=== PATIENT | female | born 1995 | race Caucasian/White ===

== ENCOUNTER 2022-10-13 11:25 | Inpatient (IN) | payer BC, SELFPAY ==
[2022-10-13] VITALS (58 sets, daily range): BP systolic 118–168; BP diastolic 58–96; PULSE 82–124; RESP 16; TEMP 36.6–36.9; O2SAT 97–100; BMI 44.2
[2022-10-13 09:42] LABS: Hematocrit 32.5 % (33.0-51.0); Hemoglobin* 10.8 gm/dL (12.0-16.0); Mean Corpuscular HGB Conc 33 gm/dL (32-36); Mean Corpuscular Hemoglobin 27 pg (26-34); Mean Corpuscular Volume 82 fL (80-100); Platelet Count* 412 K/uL (140-440); Red Blood Count 3.98 m/uL (4.00-5.20)
[2022-10-13 09:45] LABS: Slide Review Reflex No
[2022-10-13 09:59] LABS: Aspartate Amino Transferase* 19 U/L (12-35); Creatinine* 0.6 mg/dL (0.5-1.5); Estimated Glomerular Filt Rate 125 ml/min
[2022-10-13 10:00] LABS: Alanine Aminotransferase* 17 U/L (4-35); Blood Urea Nitrogen* 5 mg/dL (5-24); INR 0.93 (0.91-1.10); Prothrombin Time 13.1 Seconds
[2022-10-13 10:00] LABS: Total Protein Urine 16 mg/dL
[2022-10-13 10:01] LABS: Creatinine Urine 87.6 mg/dL
[2022-10-13 10:01] LABS: Fibrinogen* 664 mg/dL (200-450)
[2022-10-13] MEDS: LACTATED RINGERS 1000 ML 1,000 ML 75 ML IV (11:58)
[2022-10-13] MEDS: ONDANSETRON 2 MG/ML inj 4 MG IV ×2 (12:04→22:04)
[2022-10-13] MEDS: miSOPROStoL 25 MCG/0.25 TABLET PO ×3 (12:10→17:34)
[2022-10-13] MEDS: LABETALOL HCL 5 MG/ML inj IVP ×2 (13:09→19:38)
[2022-10-13 13:16] LABS: SARS PCR* Negative SARS-CoV-2 (Negative)
[2022-10-13 16:15] LABS: Hematocrit 34.2 % (33.0-51.0); Hemoglobin* 11.2 gm/dL (12.0-16.0); Mean Corpuscular HGB Conc 33 gm/dL (32-36); Mean Corpuscular Hemoglobin 27 pg (26-34); Mean Corpuscular Volume 82 fL (80-100); Platelet Count* 456 K/uL (140-440); Red Blood Count 4.18 m/uL (4.00-5.20); White Blood Count* 16.67 K/uL (4.50-11.00)
[2022-10-13 16:32] LABS: Slide Review Reflex No
[2022-10-13 16:39] LABS: Alanine Aminotransferase* 16 U/L (4-35); Aspartate Amino Transferase* 19 U/L (12-35); Blood Urea Nitrogen* 4 mg/dL (5-24); Creatinine* 0.5 mg/dL (0.5-1.5); Est. Creatinine Clearance* 149.39; Estimated Glomerular Filt Rate 130 ml/min
[2022-10-13 16:46] LABS: Magnesium* 4.1 mg/dL (1.5-2.6)
--- NOTE | 2022-10-13 19:45 | PM.OBHPLI ---
OB - H&P: HPI Labor/Induction History of Present Illness Date Seen: 10/13/22 Chief Complaint: The patient is a 27 year old 2 para 1 at 36+5 weeks gestation by LMP and confirmed with 7 week US, who presents with elevated BP readings up to 170s systolic at home. She has had readings up to 160s systolic here in the hospital as well, so she was admitted for IOL for preeclampsia with severe features. Chief complaint: Maternity : 2 Para: 1 Indications for induction: pre-eclampsia Narrative: Trang Puentes is a 27 year old female here for IOL for preeclampsia with severe features. She has a history of preexisting HTN, well controlled without medications throughout until 10/12/2022 when she was noted to have high readings at home. She was seen at [facility] yesterday with one BP reading of 160s systolic. Was given a dose of betamethasone and d/c home to follow up in clinic today. However because of home readings up to 179/103, she presented to L&D where she had another BP reading into the 160s. She report no headache, no vision changes, no swelling, no RUQ pain. Her preeclampsia labs were negative, however because of continued elevated readings, a phone consult with perinatology was placed and IOL and IV magnesium were recommend for preeclampsia with severe features. Patient has now had 3 doses of cytotec and cervix is more favorable. She is have occasional contractions, but minimal discomfort. Cook catheter placed with 50 mL in both intrauterine and intravaginal balloons. History of Present Dating criteria: based on LMP care: good care Ultrasounds: normal 1st trimester US and other (Normal 2nd trimester, normal 34 week growth us) complications: preeclampsia Narrative: hypothyroid, adequately recplaced. Labs Blood type: O (+) positive Rubella: immune RPR/VDLR: nonreactive GBS status: negative HBsAG: negative Review of Systems Status of ROS: Reports: 10 or more systems reviewed and unremarkable except as noted in History and below Meds Home Medications and Allergies Home Medications Medication Instructions Recorded Confirmed Type aspirin 81 mg capsule 81 mg PO DAILY 10/13/22 10/13/22 History docosahexaenoic acid 1 cap PO DAILY 10/13/22 10/13/22 History fluoxetine 40 mg capsule 40 mg PO DAILY 10/13/22 10/13/22 History levothyroxine 100 mcg tablet 100 mcg PO DAILY 10/13/22 10/13/22 History Allergies Allergy/AdvReac Type Severity Reaction Status Date / Time sulfamethoxazole Allergy Mild Rash Verified 10/13/22 09:07 [From Bactrim] trimethoprim [From Bactrim] Allergy Mild Rash Verified 10/13/22 09:07 OB - H&P: Exam Physical Exam: Vital signs: Temp Pulse Resp BP Pulse Ox 97.9 F 86 16 164/77 H 100 10/13/22 17:32 10/13/22 19:30 10/13/22 17:32 10/13/22 19:30 10/13/22 19:20 Constitutional: Constitutional: no acute distress Routine HEENT Exam: Head: Present atraumatic and normal inspection Eye: Present EOMI and PERRL ENT: Present mucous membranes moist Routine Neck Exam: Neck: Present full ROM Routine Respiratory Exam: Respiratory: Present CTA bilaterally Routine Cardiovascular Exam: Cardiovascular: RRR Detailed Labor and Delivery Exam: Patient Gravid: Yes Dilation (cm): 1 Effacement (%): 70 Cervix position: posterior Consistency: soft Fetus (Single): Station: -3 Routine Extremities Exam: Comments: no swelling Routine Skin Exam: Present intact Routine Neurological Exam: Present alert, oriented X3 and CN II-XII intact Comments: hyperreflexive with clonus at patella OB - Results Labs Labs: Short CBC 10/13/22 10/13/22 Range/Units 09:33 16:10 WBC 13.90 H 16.67 H (4.50-11.00) K/uL Hgb 10.8 L 11.2 L (12.0-16.0) gm/dL Hct 32.5 L 34.2 (33.0-51.0) % Plt Count 412 456 H (140-440) K/uL BMP 10/13/22 10/13/22 09:33 16:10 BUN 5 4 L Creatinine 0.6 0.5 Liver Function 10/13/22 10/13/22 Range/Units 09:33 16:10 AST 19 19 (12-35) U/L ALT 17 16 (4-35) U/L OB - Problem Based A/P Additional Plan (1) Preeclampsia, severe: Status: Acute (2) : Status: Acute (3) Hypothyroid: Status: Acute Plan 1. Cook catheter placed, start pitocin at midnight. 2. Continue magnesium, BP management and Q6 hour labs 3. Epidural per patient request 4. plan for AROM and continued pitocin in the AM. Anticipate 5. Audio Visual Aids Director consulted. Delivery/Labor/Induction Plan Plan: induction Induction method: per pitocin protocol
[2022-10-13] MEDS: BETAMETHASONE SOD PHOS/ACETATE 6 MG/ML ML 12 MG IM (21:37)
[2022-10-13 21:42] LABS: Hematocrit 32.4 % (33.0-51.0); Hemoglobin* 10.7 gm/dL (12.0-16.0); Mean Corpuscular HGB Conc 33 gm/dL (32-36); Mean Corpuscular Hemoglobin 27 pg (26-34); Mean Corpuscular Volume 82 fL (80-100); Platelet Count* 407 K/uL (140-440); Red Blood Count 3.96 m/uL (4.00-5.20); White Blood Count* 15.67 K/uL (4.50-11.00)
[2022-10-13 21:44] LABS: Slide Review Reflex No
[2022-10-13] MEDS: MORPHINE 10 MG/ML inj IM (21:45)
[2022-10-13] MEDS: hydrOXYzine pamoate 25 MG CAPSULE 100 MG PO (21:45)
[2022-10-13 22:08] LABS: Alanine Aminotransferase* 16 U/L (4-35); Aspartate Amino Transferase* 19 U/L (12-35); Blood Urea Nitrogen* 4 mg/dL (5-24); Creatinine* 0.5 mg/dL (0.5-1.5); Est. Creatinine Clearance* 149.39; Estimated Glomerular Filt Rate 130 ml/min
[2022-10-13 22:21] LABS: Magnesium* 4.6 mg/dL (1.5-2.6)
[2022-10-14] VITALS (85 sets, daily range): BP systolic 114–177; BP diastolic 59–95; PULSE 74–119; RESP 16–18; TEMP 36.5–37.2; O2SAT 97–99
[2022-10-14] MEDS: LACTATED RINGERS 1000 ML 1,000 ML 75 ML IV ×3 (00:23→22:35)
[2022-10-14] MEDS: OXYTOCIN 30 unit/500 ML in NS 30 UNIT/500 ML BAG IVPB (00:36)
--- NOTE | 2022-10-14 07:29 | P.OBPN_ITS ---
Subjective Date Seen: 10/14/22 Narrative: Trang is a at 36+6 undergoing IOL for preeclampsia with severe features. Labs have remained normal overnight. Was able to sleep some overnight. No doses of labetalol since 1930 last night. Patient reports feeling some contractions, but pretty irregular. Underwent AROM with small amount of clear fluid. Objective Vital Signs: Last Vital Signs Temp 98.1 F 10/13/22 23:34 Pulse 89 10/14/22 06:34 Resp 16 10/13/22 17:32 BP 126/72 10/14/22 06:34 Pulse Ox 100 10/13/22 19:20 Pelvic Exam Dilation (cm): 4.5 Effacement (%): 70 Station: -2 Contractions Monitor mode: External Contraction pattern: Irregular Contraction intensity: Mild Assessment Station: -3 Amniotic Membrane Status: AROM Status: Category l Heart Rate Baseline: 125 Magazine Grinder Loader Variability: Moderate (6-25) Monitor Accelerations: Present Monitor Decelerations: None Plan Plan: IOL for preeclampsia with severe features. Cook catheter removed and AROM completed. Continue pitocin. Epidural per patient request. Anticipate .
[2022-10-14 09:50] LABS: Hematocrit 31.5 % (33.0-51.0); Hemoglobin* 10.4 gm/dL (12.0-16.0); Mean Corpuscular HGB Conc 33 gm/dL (32-36); Mean Corpuscular Hemoglobin 27 pg (26-34); Mean Corpuscular Volume 82 fL (80-100); Platelet Count* 425 K/uL (140-440); Red Blood Count 3.83 m/uL (4.00-5.20); White Blood Count* 13.74 K/uL (4.50-11.00)
[2022-10-14 09:53] LABS: Slide Review Reflex No
[2022-10-14 10:04] LABS: Creatinine* 0.5 mg/dL (0.5-1.5); Est. Creatinine Clearance* 149.39; Estimated Glomerular Filt Rate 130 ml/min
[2022-10-14 10:05] LABS: Alanine Aminotransferase* 17 U/L (4-35); Aspartate Amino Transferase* 20 U/L (12-35); Blood Urea Nitrogen* 4 mg/dL (5-24)
[2022-10-14 10:19] LABS: Magnesium* 5.1 mg/dL (1.5-2.6)
[2022-10-14] MEDS: fentaNYL 250 MCG/5 ML inj 100 MCG EPIDURAL (11:55)
[2022-10-14] MEDS: ROPIVACAINE 0.2% 100 ml 100 ML 12 MG EPIDURAL (12:01)
[2022-10-14] MEDS: LIDOCAINE 2% (PF) 5 ML VIAL EPIDURAL (12:01)
--- NOTE | 2022-10-14 12:10 | P.ANBPRC_ITS ---
[facility] Medical History (Updated 10/13/22 @ 20:01 by Gege Ramon MD) Hypothyroid Preeclampsia, severe Social History Smoking Status: Never smoker Meds Home Medications and Allergies Home Medications Medication Instructions Recorded Confirmed Type aspirin 81 mg capsule 81 mg PO DAILY 10/13/22 10/13/22 History docosahexaenoic acid 1 cap PO DAILY 10/13/22 10/13/22 History fluoxetine 40 mg capsule 40 mg PO DAILY 10/13/22 10/13/22 History levothyroxine 100 mcg tablet 100 mcg PO DAILY 10/13/22 10/13/22 History Allergies Allergy/AdvReac Type Severity Reaction Status Date / Time sulfamethoxazole Allergy Mild Rash Verified 10/13/22 09:07 [From Bactrim] trimethoprim [From Bactrim] Allergy Mild Rash Verified 10/13/22 09:07 Results Labs Labs: Laboratory Results - last 24 hr 10/13/22 10/13/22 10/13/22 12:15 16:10 16:10 WBC 16.67 H RBC 4.18 Hgb 11.2 L Hct 34.2 MCV 82 MCH 27 MCHC 33 Plt Count 456 H BUN 4 L Creatinine 0.5 Estimated Creat Clear 149.39 Estimated GFR 130 Magnesium 4.1 H* AST 19 ALT 16 SARS-CoV-2 (PCR) Negative SARS-CoV-2 Blood Type Antibody Screen 10/13/22 10/13/22 10/13/22 16:30 21:32 21:32 WBC 15.67 H RBC 3.96 L Hgb 10.7 L Hct 32.4 L MCV 82 MCH 27 MCHC 33 Plt Count 407 BUN 4 L Creatinine 0.5 Estimated Creat Clear 149.39 Estimated GFR 130 Magnesium 4.6 H* AST 19 ALT 16 SARS-CoV-2 (PCR) Blood Type O Positive Antibody Screen NEGATIVE 10/14/22 10/14/22 09:31 09:31 WBC 13.74 H RBC 3.83 L Hgb 10.4 L Hct 31.5 L MCV 82 MCH 27 MCHC 33 Plt Count 425 BUN 4 L Creatinine 0.5 Estimated Creat Clear 149.39 Estimated GFR 130 Magnesium 5.1 H* AST 20 ALT 17 SARS-CoV-2 (PCR) Blood Type Antibody Screen Vital Signs Vital Signs: Last Vital Signs Temp 98.2 F 10/14/22 10:07 Pulse 100 10/14/22 12:10 Resp 16 10/14/22 10:07 BP 142/74 H 10/14/22 12:10 Pulse Ox 98 10/14/22 12:04 Weight: 120.565 kg Height: 165.1 cm Anesthesia Procedures Epidural Insertion Patient Location: OB Start Time: 11:15 Stop Time: 12:15 Start Date: 10/14/22 Stop Date: 10/14/22 Reason for Block: primary anesthetic Patient Position: sitting Performed By: Huber Panchal Preanesthetic Checklist: IV checked, risks and benefits discussed, surgical consent, monitors and equipment checked, pre-op evaluation, timeout performed and anesthesia consent Prep: chlorhexidine gluconate Monitoring: blood pressure monitoring, cardiac rehabilitation specialist, continuous pulse oximetry and heart rate Approach: midline Vertebral Space: lumbar (1-5) Needle Type: Tuohy needle Injection Technique: continuous catheter Needle gauge: 17 Needle Length (cm): 10 cm Needle Insertion Depth (cm): 6 Catheter Gauge: 19 Catheter Type: multi-orifice Catheter at skin depth (cm): 12 Test Dose Result: negative and lidocaine 1.5% with epinephrine 1 to 200,000 Events: other
--- NOTE | 2022-10-14 15:30 | P.OBPN_ITS ---
Subjective Date Seen: 10/14/22 Narrative: Trang continues to do well. Became more uncomfortable around 1030 and requested an epidural. Is now feeling comfortable, some pelvic pressure. BPs have remained below treatment level. Magnesium drip continues. Objective Vital Signs: Last Vital Signs Temp 98.2 F 10/14/22 14:55 Pulse 77 10/14/22 15:21 Resp 16 10/14/22 14:55 BP 131/77 10/14/22 15:21 Pulse Ox 98 10/14/22 12:04 Pelvic Exam Dilation (cm): 8 Effacement (%): 80 Station: -2 Contractions Monitor mode: External Contraction pattern: Regular Contraction intensity: Strong/Firm Assessment Assessment: induction ongoing Station: -2 Amniotic Membrane Status: AROM Status: Category l Heart Rate Baseline: 125 Card Punching Machine Operator Variability: Moderate (6-25) Monitor Accelerations: Absent Monitor Decelerations: Variable Plan Plan: Continue pitocin induction Continue magnesium and lab monitoring. BP treatment per protocol. Anticipate
[2022-10-14 16:17] LABS: Hematocrit 31.1 % (33.0-51.0); Hemoglobin* 10.1 gm/dL (12.0-16.0); Mean Corpuscular HGB Conc 33 gm/dL (32-36); Mean Corpuscular Hemoglobin 27 pg (26-34); Mean Corpuscular Volume 83 fL (80-100); Platelet Count* 402 K/uL (140-440); Red Blood Count 3.73 m/uL (4.00-5.20); White Blood Count* 16.16 K/uL (4.50-11.00)
[2022-10-14 16:18] LABS: Slide Review Reflex No
[2022-10-14 16:36] LABS: Alanine Aminotransferase* 14 U/L (4-35); Aspartate Amino Transferase* 19 U/L (12-35); Blood Urea Nitrogen* 6 mg/dL (5-24); Creatinine* 0.6 mg/dL (0.5-1.5); Est. Creatinine Clearance* 124.49; Estimated Glomerular Filt Rate 125 ml/min
[2022-10-14 16:41] LABS: Magnesium* 5.1 mg/dL (1.5-2.6)
[2022-10-14] MEDS: miSOPROStoL 800 MCG/4 TABLET PR (18:10)
[2022-10-14] MEDS: TRANEXAMIC ACID 100 MG/ML INJ 1000 MG IV (18:11)
[2022-10-14] MEDS: CARBOPROST TROMETHAMINE 250 MCG/ML INJ IM (18:14)
[2022-10-14] MEDS: LOPERAMIDE HCL 2 MG CAPSULE 4 MG PO (18:14)
[2022-10-14] MEDS: ACETAMINOPHEN 500 MG TABLET 1000 MG PO (18:29)
--- NOTE | 2022-10-14 18:37 | PM.OBPRCVD ---
Procedure Delivery date: 10/14/22 Procedure Done: Global Events: Labor < 37 Weeks and Pre-Eclampsia Intrapartal Events: Excessive Bleeding Induction method: Intracervical balloon catheter Delivery augmentation: rupture of membranes and pitocin Delivery monitor: external FHT Route of delivery: Episiotomy description: None Laceration description: None Anesthesia type: Epidural Narrative: The patient is a 27 year-old admitted on 10/13/2022 at 36 Weeks, 5 Days gestation for IOL for severe preeclampsia.? Cervical exam on admission was 1 cm/0 % effaced/-3 station with membranes intact in vertex presentation.? Contractions were absent.? heart rate demonstrated baseline 130 bpm with moderate variability, + accelerations, - decelerations; a category 1 tracing. She was given 3 doses of cytotec prior to placement of cook catheter at 1940. At removal of cook catheter at 0720, ? AROM occurred at 0723 with clear fluid. Pitocin was continued throughout the day on 10/14/2022 ? Labor Analgesia:? epidural ? Pitocin:? yes ? Labor onset:? 1120 ? Complete:? 1749 ? Pushing:? 1756 ? heart tones during second stage were category 1. ? At 1808 a viable female infant delivered in vertex OA presentation over intact perineum via spontaneous vaginal delivery.? Infant was placed on maternal abdomen.? Cord was clamped and cut after a 30-60 second delay.? Nose and mouth were bulb suctioned.? weight pending.? 8 at 1 minute and 9 at 5 minutes.? Shoulder dystocia: no.? Nuchal cord: no. ? Placenta delivered spontaneously and complete at 1810 with a 3 vessel cord. At that time, IV pitocin was turned up to 300 ml/hour. Uterus was boggy and rectal cytotec followed by IV TXA and IM hemabate provided. Uterus was then palpated firm ? Mother and were stable after delivery. ? Lacerations:? none. ? Blood loss: 857 mL. Blood loss measurement type: QBL ? Sponge and needles counts are correct. [place] Gender: Female presentation: vertex Placental Delivery Description: Spontaneous Cord Description: 3 Vessels
[2022-10-15] VITALS (9 sets, daily range): BP systolic 121–163; BP diastolic 66–85; PULSE 78–93; RESP 16; TEMP 36.5–37; O2SAT 96–99
[2022-10-15] MEDS: IBUPROFEN 600 MG TABLET PO (03:49)
[2022-10-15 06:12] LABS: Hematocrit 27.3 % (33.0-51.0); Hemoglobin* 8.9 gm/dL (12.0-16.0); Mean Corpuscular HGB Conc 33 gm/dL (32-36); Mean Corpuscular Hemoglobin 27 pg (26-34); Mean Corpuscular Volume 84 fL (80-100); Platelet Count* 380 K/uL (140-440); Red Blood Count 3.26 m/uL (4.00-5.20); White Blood Count* 14.38 K/uL (4.50-11.00)
[2022-10-15 06:15] LABS: Slide Review Reflex No
[2022-10-15 06:28] LABS: Alanine Aminotransferase* 17 U/L (4-35); Aspartate Amino Transferase* 21 U/L (12-35); Creatinine* 0.6 mg/dL (0.5-1.5); Est. Creatinine Clearance* 124.49; Estimated Glomerular Filt Rate 125 ml/min
[2022-10-15] MEDS: FERROUS SULFATE 325 MG TABLET PO (09:01)
[2022-10-15] MEDS: ACETAMINOPHEN 500 MG TABLET 1000 MG PO (09:01)
[2022-10-15] MEDS: LEVOTHYROXINE 100 MCG TABLET PO (09:02)
[2022-10-15] MEDS: FLUOXETINE HCL 20 MG CAPSULE 40 MG PO (09:02)
[2022-10-15] MEDS: LABETALOL HCL 100 MG TABLET PO ×2 (11:14→21:12)
[2022-10-15] MEDS: LACTATED RINGERS 1000 ML 1,000 ML 75 ML IV (11:57)
--- NOTE | 2022-10-15 13:46 | P.OBPN_ITS ---
OB - PN:Subj Subjective Date Seen: 10/15/22 Patient comments OB post-: no complaints [place] status: feeding status: exclusively OB - PN: Obj Exam Physical Exam: Vital signs: Temp Pulse Resp BP Pulse Ox O2 Del Method 97.7 F 81 16 131/81 96 10/15/22 12:10 10/15/22 12:10 10/15/22 12:10 10/15/22 12:10 10/15/22 12:10 10/15/22 12:10 Constitutional: Constitutional: no acute distress Routine Abdominal Exam: Comments: Soft and non tender, uterus firm 1 cm below umbilicus. OB - PN: Obj Data Labs Labs: Laboratory Results - last 24 hr 10/14/22 10/14/22 10/15/22 15:54 15:54 06:05 WBC 16.16 H 14.38 H RBC 3.73 L 3.26 L Hgb 10.1 L 8.9 L Hct 31.1 L 27.3 L MCV 83 84 MCH 27 27 MCHC 33 33 Plt Count 402 380 BUN 6 Creatinine 0.6 Estimated Creat Clear 124.49 Estimated GFR 125 Magnesium 5.1 H* AST 19 ALT 14 10/15/22 06:05 WBC RBC Hgb Hct MCV MCH MCHC Plt Count BUN Creatinine 0.6 Estimated Creat Clear 124.49 Estimated GFR 125 Magnesium AST 21 ALT 17 OB - PN: A/P Vaginal Delivery Assessment and Plan (1) Preeclampsia, severe: Status: Acute Assessment and Plan: Continue magnesium to 24 hours. Labetalolol started for BP management. (2) : Status: Inactive (3) Hypothyroid: Status: Acute Plan Plan: routine care Comments: likely d/c in AM if BP remains well controlled.
[2022-10-15] MEDS: LANOLIN CREAM 1 APPLIC TOPICAL (21:31)
[2022-10-16] VITALS (8 sets, daily range): BP systolic 124–149; BP diastolic 71–79; PULSE 66–82; RESP 16–18; TEMP 36.7–37.1; O2SAT 95–96
[2022-10-16] MEDS: IBUPROFEN 600 MG TABLET PO ×2 (04:07→16:25)
[2022-10-16 06:20] LABS: Hematocrit 23.8 % (33.0-51.0); Mean Corpuscular HGB Conc 32 gm/dL (32-36); Mean Corpuscular Hemoglobin 27 pg (26-34); Mean Corpuscular Volume 85 fL (80-100); Platelet Count* 342 K/uL (140-440); Red Blood Count 2.81 m/uL (4.00-5.20); White Blood Count* 10.01 K/uL (4.50-11.00)
[2022-10-16 06:26] LABS: Hemoglobin* 7.6 gm/dL (12.0-16.0); Slide Review Reflex No
[2022-10-16 06:35] LABS: Aspartate Amino Transferase* 21 U/L (12-35); Creatinine* 0.6 mg/dL (0.5-1.5); Est. Creatinine Clearance* 124.49; Estimated Glomerular Filt Rate 125 ml/min
[2022-10-16 06:36] LABS: Alanine Aminotransferase* 15 U/L (4-35); Blood Urea Nitrogen* 12 mg/dL (5-24)
--- NOTE | 2022-10-16 07:16 | PM.OBPNVD1 ---
OB - PN:Subj Subjective Time Seen by Provider: 07:16 Date Seen: 10/16/22 Patient comments OB post-: no complaints status: feeding status: exclusively Narrative: Pt doing well. No concerns today. No headache. No abdominal pain. Lochia mild. Ambulating without lightheadedness. . OB - PN: Obj Exam Physical Exam: Vital signs: Temp Pulse Resp BP Pulse Ox O2 Del Method 98.6 F 68 16 146/75 H 96 10/16/22 04:04 10/16/22 04:04 10/16/22 04:04 10/16/22 04:04 10/16/22 04:04 10/16/22 04:04 Constitutional: Constitutional: no acute distress and cooperative Routine HEENT Exam: Head: Present normal inspection Routine Abdominal Exam: Fundus: Present firm Routine Extremities Exam: Extremities: Absent pedal edema Routine Psychiatric Exam: Psychiatric: Present normal affect, normal thought process, cooperative, good insight and good judgment OB - PN: Obj Data Labs Labs: Laboratory Results - last 24 hr 10/16/22 10/16/22 05:44 05:44 WBC 10.01 RBC 2.81 L Hgb 7.6 L* Hct 23.8 L MCV 85 MCH 27 MCHC 32 Plt Count 342 BUN 12 Creatinine 0.6 Estimated Creat Clear 124.49 Estimated GFR 125 AST 21 ALT 15 OB - PN: A/P Vaginal Delivery Assessment and Plan (1) Preeclampsia, severe: Status: Acute Assessment and Plan: BP's variable but sill with some in 140's so labetalol increased to 200mg bid this morning's dose. Continue with daily preeclamptic labs. Discussed discharge goal from preeclamptic standpoint needs to be > 24hours off magnesium AND bp's < 130/80. (2) : Status: Inactive (3) Hypothyroid: Status: Acute (4) hemorrhage: Status: Acute Assessment and Plan: Hgb 7.6 this morning. Lochia mild since initial PPH immediately after delivery. Pt tolerating anemia well, asymptomatic. On iron. Recheck hgb tomorrow morning. Plan Comments: see above. Discharge planning: will be 24hours off magnesium around 6pm tonight. Need improvement in BP's with increased labetolol dosing with first increased dose this morning. Infant failed carseat challenge and per protocol plan recheck 24 hours later which will be 4am tomorrow. Earliest discharge possibility would be Wednesday but depends on bp's. Discussed all these factors with pt and .
[2022-10-16] MEDS: LABETALOL HCL 100 MG TABLET 200 MG PO ×3 (08:30→23:38)
[2022-10-16] MEDS: DOCUSATE SODIUM 100 MG CAPSULE PO (08:30)
[2022-10-16] MEDS: FERROUS SULFATE 325 MG TABLET PO (08:30)
[2022-10-16] MEDS: FLUOXETINE HCL 20 MG CAPSULE 40 MG PO (08:30)
[2022-10-16] MEDS: LEVOTHYROXINE 100 MCG TABLET PO (08:31)
[2022-10-16] MEDS: ACETAMINOPHEN 500 MG TABLET 1000 MG PO (23:38)
[2022-10-17 05:59] VITALS: BP 154/82; PULSE 67
[2022-10-17] MEDS: LABETALOL HCL 100 MG TABLET 200 MG PO (06:03)
[2022-10-17] MEDS: LEVOTHYROXINE 100 MCG TABLET PO (06:03)
[2022-10-17 07:35] LABS: Platelet Count* 328 K/uL (140-440)
[2022-10-17 07:44] LABS: Hemoglobin* 7.9 gm/dL (12.0-16.0)
[2022-10-17 07:54] LABS: Alanine Aminotransferase* 18 U/L (4-35); Aspartate Amino Transferase* 21 U/L (12-35); Creatinine* 0.6 mg/dL (0.5-1.5); Est. Creatinine Clearance* 124.49; Estimated Glomerular Filt Rate 125 ml/min
[2022-10-17 09:00] VITALS: BP 150/86; PULSE 78; RESP 18; TEMP 37.2; O2SAT 98
[2022-10-17] MEDS: DOCUSATE SODIUM 100 MG CAPSULE PO (09:16)
[2022-10-17] MEDS: FERROUS SULFATE 325 MG TABLET PO (09:16)
[2022-10-17] MEDS: FLUOXETINE HCL 20 MG CAPSULE 40 MG PO (09:16)
[2022-10-17] MEDS: IBUPROFEN 600 MG TABLET PO (09:16)
[2022-10-17] MEDS: HYDRALAZINE 10 MG TABLET PO ×2 (11:20→17:08)
[2022-10-17 13:01] VITALS: BP 151/78; PULSE 90; RESP 18
[2022-10-17] MEDS: LABETALOL HCL 100 MG TABLET 300 MG PO (13:59)
[2022-10-17 14:15] VITALS: BP 147/83; PULSE 80; RESP 16
[2022-10-17 16:15] VITALS: BP 158/87; PULSE 78; RESP 18; TEMP 37; O2SAT 96
[2022-10-17 16:30] VITALS: BP 144/83; PULSE 84
--- NOTE | 2022-10-17 18:58 | P.DS_ITS ---
DS: Providers Provider Date Seen: 10/17/22 Date of admission: 10/13/22 11:25 Primary care physician: Portia Cortés MD Admitting Clinician: Gege Ramon MD Attending Physician on discharge: Portia Cortés MD Exam Const: Vital Signs, click to edit/add: Vital Signs - 24 hr 10/16/22 21:27 10/16/22 23:33 10/17/22 05:59 Temperature 98.5 F Pulse Rate [Pulse Oximeter] 67 67 Respiratory Rate 18 Blood Pressure [Ri ght Arm] 133/72 130/71 154/82 H Pulse Oximetry Oxygen Delivery Me thod 10/17/22 09:00 10/17/22 13:01 10/17/22 14:15 Temperature 99 F Pulse Rate [Pulse Oximeter] 78 90 80 Respiratory Rate 18 18 16 Blood Pressure [Ri ght Arm] 150/86 H 151/78 H 147/83 H Pulse Oximetry 98 Oxygen Delivery Me thod Room Air 10/17/22 16:30 10/17/22 16:15 Temperature 98.6 F Pulse Rate [Pulse Oximeter] 84 78 Respiratory Rate 18 Blood Pressure [Ri ght Arm] 144/83 H 158/87 H Pulse Oximetry 96 Oxygen Delivery Me thod Room Air Common normals: no apparent distress HENMT: Mouth: oral and palatal mucosa normal Resp: Common normals: normal respiratory effort and clear to auscultation bilaterally Auscultation: clear to auscultation bilaterally Cardio: Common normals: regular rate, regular rhythm and no murmurs Rate: regular rate Rhythm: regular rhythm GI: Common normals: non-tender Extremity: Common normals: no calf tenderness; pedal edema (1+ edema in bilateral lower extremities) OB - DS: Summary Hospital Course Hospital Course: The patient is a 27 year old G 2 P 1 at 36 weeks 5 days gestation that was admitted to the Center on 10/13/22 for IOL. She had severe preeclampsia and was on magnesium. She had a vaginal delivery. She delivered a viable female . She is breast feeding. Blood pressures have been difficult to control after delivery. She was started on po labetalol and hydralazine was added on 10/17. the patient has done well. Peripartum Data Infant delivery method: Vaginal Infant Gender: Female Time Spent with Patient Time attestation: Total time spent providing and/or coordinating discharge services: Time spent: Greater than 30 minutes Discharge Plan Discharge Disposition: Home, Self-Care Date of Admission: 10/13/22 11:25 Primary Care Provider: Portia Cortés Condition: Stable Anticipated Discharge Date/Time: 10/17/22 09:47 Discharge Medications: New hydralazine 10 mg Tablet 10 mg PO Q6H Qty: 60 0RF levothyroxine 100 mcg Tablet 100 mcg PO DAILY@0700 Qty: 30 0RF labetalol 100 mg Tablet 300 mg PO TID Qty: 60 0RF Continued fluoxetine 40 mg capsule 40 mg PO DAILY Label Comments: TAKE ONE CAPSULE BY MOUTH EVERY DAY IN THE MORNING. levothyroxine 100 mcg tablet 100 mcg PO DAILY Label Comments: TAKE ONE TABLET BY MOUTH ONE TIME DAILY BEFORE BREAKFAST docosahexaenoic acid [ DHA] 1 cap PO DAILY aspirin 81 mg capsule 81 mg PO DAILY Discharge Orders: Discharge Order (Routine); Ordered 10/17/22 Ordered By: Cuate Mcqueen Patient Education: OB High Blood Pressure DC, OB Over the Counter Medication Information, OB Vaginal/Breast Feeding Activity Level: Activity as Tolerated Follow Up Appointments: Portia Cortés MD [Primary Care Provider] - Forms: [employer] Info Instructions Discharge Comments: Discharge home on Labetalol 300 mg tid and Hydralazine 10 mg qid for hypertension. Goal BP < 140/90. Will monitor closely at home and increase medication as needed based on response. Discussed risk of discharge with higher blood pressures and patient understands risks. Monitor closely.
== END 2022-10-17 19:50 | disposition home or self-care (01) | DRG 560 ==
LOC: OB OUT 10-20 07:32 → OB 10-20 07:32
PROVIDERS: Family Medicine; Admitting Provider Family Medicine; PCP Family Medicine; Visit Provider Family Medicine
DX: O14.14 Severe pre-eclampsia complicating childbirth (principal); O99.284 Endocrine, nutritional and metabolic diseases complicating childbirth; E03.9 Hypothyroidism, unspecified; O72.1 Other immediate postpartum hemorrhage; O90.81 Anemia of the puerperium; D62 Acute posthemorrhagic anemia; Z37.0 Single live birth; Z3A.36 36 weeks gestation of pregnancy
CPT/HCPCS: 01967; 36415; 59200; 82565; 82570; 83735; 84156; 84450; 84460; 84520; 85018; 85027; 85049; 85384; 85610; 86850; 86900; 86901; 87635; 88307; 99213; A9270; J0702; J2270; J2405; J2795; J3010; J3475; J7120

== ENCOUNTER 2022-11-30 08:32 | Outpatient (CLI) | payer BC, SELFPAY ==
--- NOTE | 2022-12-25 16:34 | P.LACCB_ITS ---
Consult Note - Mom Date of Visit Date of visit: 11/30/22 pharmacy consultant: Mandy Loredo Visit Code: Visit Patient's Information Phone number: [phone] : 2 Para: 2 Allergies sulfamethoxazole [From Bactrim] Allergy (Mild, Verified 10/13/22 09:07) Rash trimethoprim [From Bactrim] Allergy (Mild, Verified 10/13/22 09:07) Rash Mother's Medical History: Medical History (Updated 10/16/22 @ 07:35 by Naomi Rivas, DO) Hypothyroid ?E03.9 - Hypothyroidism, unspecified (ICD-10) Preeclampsia, severe ?O14.10 - Severe pre-eclampsia, unspecified trimester (ICD-10) Depression Delivery Information Delivery type: Vaginal Weeks Gestation: 36.6 Gestational Age: AGA Weight: 2.863 kg Discharge Weight: 2.808 kg Baby's Information Baby's Age at Visit: 7 weeks Baby's Provider or Clinic: Dr. Ramon Reason for Consult Reason for Consult: difficulty latching, mom with damaged nipples Past Experience Past Experience: No Current Frequency of Day Feedings: every 2 - 3 hours Frequency of Night Feedings: every 4 - 6 hours Both Breasts: No Suck: somewhat aggressive Latch: shallow Length of Time: 10 - 20 minutes Goals: wants to be successful with this baby Pumping Pumping: Yes (will pump from the side baby doesn't nurse) Quantity Pumped: 3 - 6 oz total Supplementing EMB Supplement: Yes (occasionally) Formula Supplement: No Baby Elimination Number of Wet Diapers a Day: almost every feeding Number of BM a Day: usually daily; no BM since 11/28 Breast/Nipple Condition Maternal Nipple Condition - Left: Common Nipple Maternal Nipple Condition - Right: Common Nipple Onsite Pre-Feed weight: 3.828 kg Post-Feed weight: 3.876 kg Milk Transferred (mL): 48 Assessments/Interventions Assessments/Interventions: Met with mom and this now 7 week old ex- late AGA baby for consult.? Mom reports nursing was going well for the first 4 - 5 weeks but baby has now developed some issues with latch and mom has had damaged, blistered nipples.? Mom reports at about a month baby started refusing the left side so mom just nursed on the right and pumped the left.? She developed a few milk blisters on the right side however, so tried baby on the left again and now baby prefers to nurse from the left so mom has been pumping the right side.? She states baby is usually satisfied with one breast and she only occasionally gives baby a 2 - 3 oz bottle of EBM.? Baby is nursing every two hours during the day and will give mom one six hour stretch of sleep at night.? Mom pumps the side baby doesn't nurse from at every feeding and gets 3 - 6 oz total each time.? Breasts WNL- symmetrical with rounded lower quadrants; the intramammary distance is < 1.5 inches.? Nipples are everted and don't flatten or retract on compression.? No damage noted but there's a small white spot on her right nipple where mom states she's had the two blisters.? Mom denies any s/s of yeast, also denies signs of vasospasm but does say when she's cold she has some pain in her nipples.? Baby has gained 31 grams/day since her visit [facility] in [place] 11/19/22.? Per mom she prefers to turn her head to the left but has equal ROM when moving her extremities.? Baby's palate seems a little higher or shorter than normal.? Her upper lip is very difficult to flange and the upper frenulum is thick.? She wouldn't suck on my finger and her tongue didn't consistently extend past the gum line.? There was also some canoeing when moving her tongue laterally.? She was able to raise her tongue fairly high, but her lower frenulum seems posterior (wasn't visible even when her mouth was open wide when crying). Mom latched baby in the football hold on the right side and the latch was shallow.? When mom was instructed to support her breast in the C hold and point her nipple to nose, she was sometimes able to get baby latched on more deeply but baby would slip to the nipple within about 90 seconds.? There was no improvement when mom hand expressed a little milk off or when she tried a nipple shield.? She then switched baby to the right side and we tried cross cradle and side lying, but baby just kept slipping from a deep latch back to a shallow one.? We worked for about 30 minutes and then quit as baby was very upset.? She transferred 45 ml; reviewed with mom she probably takes more but at this feeding she was quite upset.? Once baby was settled, mom's flange size was assessed and it was suggested she try an 18 - 20mm as her areola was getting pulled too far into the flange with 24 mm; she's using a [employer] pump.? Suspect mom's symptom of vasospasm has more to do with the latch but suggested as she's working on that to keep her nipples warm and try massage and stretches; handout given.? Plan: 1. Continue to nurse baby ALD, offering one side per feeding is ok for now; try alternating sides.? Suggested she express a little milk off before nursing and practice nipple to nose as these ideas may help baby to have a deeper latch and stay on.? Could also experiment with the nipple shield.? 2. Continue to pump to empty the side baby doesn't nurse from and to comfort if needed on the other side.? 3. OK to have dad give a bottle of EBM every day or every few days so she remembers how to take it. 4. Gave mom some tongue exercises but also suggested she contact a pediatric dentist for an evaluation.? If baby's latch is better with the aforementioned suggestions she can always cancel it. 5. F/U with Dr. Ramon on 12/04 and I will f/u with her by phone that day as well. Meds Home Medications and Allergies Home Medications Medication Instructions Recorded Confirmed Type aspirin 81 mg capsule 81 mg PO DAILY 10/13/22 10/13/22 History docosahexaenoic acid 1 cap PO DAILY 10/13/22 10/13/22 History fluoxetine 40 mg capsule 40 mg PO DAILY 10/13/22 10/13/22 History levothyroxine 100 mcg tablet 100 mcg PO DAILY 10/13/22 10/13/22 History Allergies Allergy/AdvReac Type Severity Reaction Status Date / Time sulfamethoxazole Allergy Mild Rash Verified 10/13/22 09:07 [From Bactrim] trimethoprim [From Bactrim] Allergy Mild Rash Verified 10/13/22 09:07
== END 2022-11-30 08:33 | disposition home or self-care (01) ==
PROVIDERS: PCP Family Medicine; Visit Provider Obstetrics & Gynecology
DX: Z39.1 Encounter for care and examination of lactating mother (principal)
CPT/HCPCS: 99211